=== PATIENT | female | born 1990 | race Caucasian/White ===

== ENCOUNTER 2023-01-25 11:08 | Outpatient (CLI) | payer OTHER, SELFPAY ==
[2023-01-29 04:02] LABS: Progesterone 4.7 ng/mL (***)
[2023-01-31 03:27] LABS: Estradiol, Ultrasensitive 296 pg/mL
== END 2023-01-25 11:09 | disposition home or self-care (01) ==
PROVIDERS: Visit Provider Student in an Organized Health Care Education/Training Program
DX: N91.2 Amenorrhea, unspecified (principal)
CPT/HCPCS: 36415; 82670; 83001; 84144; 84443

== ENCOUNTER 2023-06-15 11:49 | Outpatient (CLI) | payer OTHER, SELFPAY ==
[2023-06-15 12:25] LABS: Basophils Percent Auto 0.2 % (0.2-1.2); Eosinophils Absolute Auto 0.1 K/mm3 (0-0.3); Eosinophils Percent Auto 0.7 % (0-4.4); Hemoglobin 13.5 g/dL (12.0-15.0); Immature Granulocyte Absolute 0.06 K/mm3 (0.00-0.031); Immature Granulocyte Percent A 0.6 % (0-0.5); Lymphocytes Absolute Auto 1.81 K/mm3 (0.9-3.2); Lymphocytes Percent Auto 17.4 % (18.3-44.2); Mean Corpuscular HGB Conc 32.1 g/dl (32-36); Mean Corpuscular Hemoglobin 30.1 pg (26-34); Mean Corpuscular Volume 93.5 fl (80-100); Mean Platelet Volume 9.8 fl (7.4-10.4); Monocytes Absolute Auto 0.7 K/mm3 (0.1-0.6); Monocytes Percent Auto 6.8 % (2.6-8.5); Neutrophils Absolute Auto 7.8 K/mm3 (1.3-6.7); Neutrophils Percent Auto 74.3 % (45.5-73.1); Platelet Count Result 290 k/mm3 (150-375); Red Blood Count 4.49 M/mm3 (4.2-5.4); Red Cell Distribution Width 13.9 % (11.5-14.5); White Blood Count 10.4 K/mm3 (4.5-10.0)
[2023-06-15 13:22] LABS: HIV 1/2 Ab P24 Ag Result Negative (Negative)
[2023-06-15 13:25] LABS: Hepatitis B Surface Antigen Negative (Negative); Rubella IgG Antibody 19.5 IU/ML
[2023-06-15 13:42] LABS: Glucose 1 Hour PP 50gm Dose 130 mg/dL
[2023-06-15 13:54] LABS: Rapid Plasma Reagin Non-Reactive (NonReactive)
[2023-06-20 12:30] LABS: CMV IgG Antibody <0.60
[2023-06-26 13:37] LABS: CF Result NEGATIVE (NEGATIVE); Ethnicity NG
== END 2023-06-15 11:50 | disposition home or self-care (01) ==
PROVIDERS: Visit Provider Student in an Organized Health Care Education/Training Program
DX: N94.89 Other specified conditions associated with female genital organs and menstrual cycle (principal)
CPT/HCPCS: 36415; 81220; 82947; 84702; 85025; 86592; 86644; 86703; 86747; 86762; 86787; 86850; 86900; 86901; 87086; 87088; 87340; G0432

== ENCOUNTER 2023-09-28 09:42 | Emergency (ER) | payer OTHER, SELFPAY ==
[2023-09-28 09:50] VITALS: BP 148/78; PULSE 109; RESP 12; TEMP 36.2; O2SAT 100
== END 2023-09-28 09:50 | disposition left against medical advice (07) ==
LOC: ANHED 11:34
DX: O26.892 Other specified pregnancy related conditions, second trimester (principal); U07.1 COVID-19; Z3A.24 24 weeks gestation of pregnancy
CPT/HCPCS: 99199

== ENCOUNTER 2023-10-19 09:41 | Outpatient (CLI) | payer OTHER, SELFPAY ==
[2023-10-19 10:07] LABS: Hematocrit 35.9 % (37.0-47.0); Hemoglobin 11.6 g/dL (12.0-15.0); Mean Corpuscular HGB Conc 32.3 g/dl (32-36); Mean Corpuscular Hemoglobin 31.2 pg (26-34); Mean Corpuscular Volume 96.5 fl (80-100); Mean Platelet Volume 9.9 fl (7.4-10.4); Platelet Count Result 301 k/mm3 (150-375); Red Blood Count 3.72 M/mm3 (4.2-5.4); Red Cell Distribution Width 13.4 % (11.5-14.5); White Blood Count 12.4 K/mm3 (4.5-10.0)
[2023-10-19 10:18] LABS: Total Protein Urine Random 12 mg/dL
[2023-10-19 10:18] LABS: Alanine Aminotransferase 13 U/L (6-35); Albumin Level 3.4 g/dL (3.5-5.1); Alkaline Phosphatase 106 U/L (38-126); Anion Gap 3 mmol/L (8-16); Aspartate Amino Transferase 18 U/L (14-36); Bilirubin,Total 0.4 mg/dL (0.2-1.3); Blood Urea Nitrogen 8 mg/dL (7-17); Calcium 8.9 mg/dL (8.4-10.2); Carbon Dioxide 24 mmol/L (22-30); Chloride 106 mmol/L (98-107); Estimated Glomerular Filt Rate > 60; Glucose 89 mg/dL (65-110); Potassium 4.1 mmol/L (3.4-5.0); Sodium 133 mmol/L (137-145)
[2023-10-19 10:20] LABS: Total Protein Urine 24 Hr 156 mg/24hr (28-141); Total Volume 24 Hour Urine 1300 ml
== END 2023-10-19 09:42 | disposition home or self-care (01) ==
LOC: ANHLAB 09:43
PROVIDERS: Visit Provider Student in an Organized Health Care Education/Training Program
DX: O10.919 Unspecified pre-existing hypertension complicating pregnancy, unspecified trimester (principal); Z3A.00 Weeks of gestation of pregnancy not specified
CPT/HCPCS: 36415; 80053; 81050; 84156; 85027

== ENCOUNTER 2023-10-29 23:18 | Observation (INO) | payer OTHER, SELFPAY ==
[2023-10-29 23:48] VITALS: BP 143/64; PULSE 89
[2023-10-30 00:01] VITALS: BP 131/74; PULSE 85
[2023-10-30 00:05] VITALS: BMI 49.5
--- NOTE | 2023-10-30 00:05 | OBADM ---
This patient, Divya Bahena, admitted to the OB room OB Post 116 for observation. Patient/family oriented to hospital policies and general routines including ID bracelet, bed and alarms, visiting hours, pain management, procedures, bathroom and other care routines, personal items, smoking policy, room service/diet, and visiting hours. Patient/Family are encouraged to report perceived risks to care and to ask questions if they do not understand what they are told or what they should do.
[2023-10-30 00:16] VITALS: BP 127/65; PULSE 85
[2023-10-30 00:25] LABS: Bacteria Urine 1+ /hpf; Non Pathogenic Casts 0-2; RBC Urine 0-2 /hpf (0-2); Squamous Epithelial Cell Urine Moderate /hpf (Few)
[2023-10-30 00:31] LABS: Appearance Urine Clear (Clear); Color Urine Dark Yellow (Yellow)
[2023-10-30 00:32] LABS: Bilirubin Urine 1+ (Negative); Blood Urine Negative (Negative); Glucose Urine UA Negative (Negative); Ketones Urine 3+ mg/dL (Negative); Nitrate Urine Negative (Negative); Protein Urine 2+ mg/dL (Negative)
[2023-10-30 00:33] LABS: Add Urine Microscopic? YES; Leukocyte Esterase Ur Negative LEU/UL (Negative)
[2023-10-30] MEDS: DEXTROSE 5%/LACTATED RINGERS 1,000 ML 500 ML IV CONT (01:10)
[2023-10-30] MEDS: ONDANSETRON INJ 4 MG/2 ML VIAL IV PUSH (01:13)
[2023-10-30] MEDS: LACTATED RINGERS 1,000 ML 999 ML IV CONT ×2 (02:15→02:45)
--- NOTE | 2023-11-02 08:23 | PM.OBTRLD ---
OB - Triage/Final Diagnosis Visit Information Comments/Additional reasons for admission: I have assessed the risk for this patient, Divya Bahena, and determined that she would benefit from observation care. Evaluation Laboratory results: Laboratory Tests 10/29/23 23:49 Urine Color Dark yellow Urine Appearance Clear Urine pH 6.0 Ur Specific [place] 1.030 Urine Protein 2+ H Urine Glucose (UA) Negative Urine Ketones 3+ H Ur Blood (Man) Negative Urine Nitrate Negative Urine Bilirubin 1+ H Urine Urobilinogen 1.0 Leukocyte Esterase Rfl Negative Urine RBC 0-2 Urine WBC 11-20 H Ur Squamous Epith Cells Moderate Urine Bacteria 1+ H Urine Casts 0-2 Final Diagnosis (1) Dehydration: Code(s): E86.0 - Dehydration Status: Acute
== END 2023-10-30 03:35 | disposition home or self-care (01) ==
PROVIDERS: Admitting Provider Obstetrics & Gynecology; Visit Provider Obstetrics & Gynecology
DX: O99.283 Endocrine, nutritional and metabolic diseases complicating pregnancy, third trimester (principal); E86.0 Dehydration; O26.893 Other specified pregnancy related conditions, third trimester; R10.9 Unspecified abdominal pain; Z3A.29 29 weeks gestation of pregnancy
CPT/HCPCS: 81001; 87086; 87088; 96374; G0378; G0379; J2405; J7120; J7121

== ENCOUNTER 2023-11-03 10:02 | Outpatient (CLI) | payer OTHER, SELFPAY ==
[2023-11-03 10:23] LABS: Hematocrit 36.4 % (37.0-47.0); Hemoglobin 11.9 g/dL (12.0-15.0); Mean Corpuscular HGB Conc 32.7 g/dl (32-36); Mean Corpuscular Hemoglobin 30.5 pg (26-34); Mean Corpuscular Volume 93.3 fl (80-100); Platelet Count Result 306 k/mm3 (150-375); Red Cell Distribution Width 13.8 % (11.5-14.5); White Blood Count 10.5 K/mm3 (4.5-10.0)
[2023-11-03 10:37] LABS: Alanine Aminotransferase 31 U/L (6-35); Albumin Level 3.3 g/dL (3.5-5.1); Alkaline Phosphatase 166 U/L (38-126); Anion Gap 9 mmol/L (8-16); Aspartate Amino Transferase 25 U/L (14-36); Bilirubin,Total 0.4 mg/dL (0.2-1.3); Blood Urea Nitrogen 5 mg/dL (7-17); Calcium 8.6 mg/dL (8.4-10.2); Carbon Dioxide 23 mmol/L (22-30); Chloride 103 mmol/L (98-107); Estimated Glomerular Filt Rate > 60; Glucose 83 mg/dL (65-110); Potassium 3.6 mmol/L (3.4-5.0); Sodium 135 mmol/L (137-145)
[2023-11-03 11:05] LABS: Creatinine Urine 87.2 mg/dL; Total Protein Urine Random 14 mg/dL
[2023-11-03 11:14] LABS: HIV 1/2 Ab P24 Ag Result Negative (Negative)
[2023-11-11 18:46] LABS: Chenodeoxycholic Acid 4.9 umol/L (< OR = 3.9); Cholic Acid 8.1 umol/L (< OR = 2.8); Deoxycholic Acid 1.8 umol/L (< OR = 2.3); Total Bile Acids 14.8 umol/L (< OR = 8.3)
== END 2023-11-03 10:03 | disposition home or self-care (01) ==
LOC: ANHLAB 10:04
PROVIDERS: Student in an Organized Health Care Education/Training Program; PCP Family Medicine; Visit Provider Obstetrics & Gynecology
DX: O10.919 Unspecified pre-existing hypertension complicating pregnancy, unspecified trimester (principal); O99.719 Diseases of the skin and subcutaneous tissue complicating pregnancy, unspecified trimester; L29.9 Pruritus, unspecified
CPT/HCPCS: 36415; 80053; 81050; 82542; 82570; 84156; 85027; 86703; G0432

== ENCOUNTER 2023-11-16 09:48 | Outpatient (CLI) | payer OTHER, SELFPAY ==
[2023-11-16 11:44] LABS: Glucose 1 Hour PP 50gm Dose 122 mg/dL
== END 2023-11-16 09:49 | disposition home or self-care (01) ==
LOC: ANHLAB 09:50
PROVIDERS: PCP Family Medicine; Visit Provider Student in an Organized Health Care Education/Training Program
DX: Z34.90 Encounter for supervision of normal pregnancy, unspecified, unspecified trimester (principal)
CPT/HCPCS: 36415; 82947

== ENCOUNTER 2023-12-05 10:51 | Observation (INO) | payer OTHER, SELFPAY ==
[2023-12-05] VITALS (15 sets, daily range): BP systolic 135; BP diastolic 71; PULSE 71–100; O2SAT 96–100; BMI 48.9
[2023-12-05 11:25] LABS: Appearance Urine Clear (Clear); Bilirubin Urine Negative (Negative); Blood Urine Negative (Negative); Color Urine Yellow (Yellow); Glucose Urine UA Negative (Negative); Ketones Urine Negative (Negative); Leukocyte Esterase Ur Negative LEU/UL (NEGATIVE); Nitrate Urine Negative (Negative); Protein Urine Negative (Negative); Specific Grav Ur 1.008 (1.001-1.035); Urobilinogen Urine 0.2 mg/dL (<2.0)
[2023-12-05 11:26] LABS: Add Urine Microscopic? NO
[2023-12-05] MEDS: LACTATED RINGERS 1,000 ML 999 ML IV CONT (12:17)
[2023-12-05] MEDS: TERBUTALINE SULFATE 1 MG/ML VIAL 0.25 MG SUB-Q (12:17)
--- NOTE | 2023-12-05 13:44 | PM.OBTRLD ---
OB - Triage/Final Diagnosis Visit Information Comments/Additional reasons for admission: I have assessed the risk for this patient, Divya Bahena, and determined that she would benefit from observation care. Evaluation Laboratory results: Laboratory Tests 12/05/23 11:16 Urine Color Yellow Urine Appearance Clear Urine pH 7.0 Ur Specific [place] 1.008 Urine Protein Negative Urine Glucose (UA) Negative Urine Ketones Negative Ur Blood (Man) Negative Urine Nitrate Negative Urine Bilirubin Negative Urine Urobilinogen 0.2 Ur Leukocyte Esterase Negative Vital signs: Vital Signs - 24 hr 12/05/23 11:15 12/05/23 12:24 12/05/23 12:29 Pulse Rate 76 Blood Pressure 135/71 Pulse Oximetry 100 96 Oxygen Delivery 12/05/23 12:36 12/05/23 12:41 12/05/23 12:45 Pulse Rate Blood Pressure Pulse Oximetry 99 99 100 Oxygen Delivery 12/05/23 12:50 12/05/23 12:55 12/05/23 13:00 Pulse Rate Blood Pressure Pulse Oximetry 100 100 100 Oxygen Delivery 12/05/23 13:05 12/05/23 13:14 12/05/23 13:19 Pulse Rate Blood Pressure Pulse Oximetry 100 100 100 Oxygen Delivery 12/05/23 13:24 12/05/23 13:29 12/05/23 13:30 Pulse Rate Blood Pressure Pulse Oximetry 98 96 98 Oxygen Delivery 12/05/23 11:22 Pulse Rate Blood Pressure Pulse Oximetry Oxygen Delivery Room Air Final Diagnosis (1) Abdominal pain affecting : Code(s): O26.899 - Other specified related conditions, unspecified trimester; R10.9 - Unspecified abdominal pain Status: Acute
--- NOTE | 2023-12-05 14:23 | PC.NURSE ---
Pt continuing to wait for a ride.
== END 2023-12-05 14:53 | disposition home or self-care (01) ==
PROVIDERS: Admitting Provider Student in an Organized Health Care Education/Training Program; PCP Family Medicine; Visit Provider Obstetrics & Gynecology
DX: O26.893 Other specified pregnancy related conditions, third trimester (principal); R10.9 Unspecified abdominal pain; Z3A.34 34 weeks gestation of pregnancy
CPT/HCPCS: 81003; 87086; 96372; G0378; G0379; J3105; J7120

== ENCOUNTER 2023-12-07 08:44 | Outpatient (CLI) | payer OTHER, SELFPAY ==
[2023-12-16 18:28] LABS: Chenodeoxycholic Acid 1.6 umol/L (< OR = 3.9); Deoxycholic Acid <0.5 umol/L (< OR = 2.3); Total Bile Acids 3.6 umol/L (< OR = 8.3)
== END 2023-12-07 08:45 | disposition home or self-care (01) ==
PROVIDERS: PCP Family Medicine
DX: K83.1 Obstruction of bile duct (principal); O26.613 Liver and biliary tract disorders in pregnancy, third trimester; Z3A.00 Weeks of gestation of pregnancy not specified
CPT/HCPCS: 36415; 82542

== ENCOUNTER 2023-12-24 10:43 | Outpatient (RCR) | payer OTHER, SELFPAY ==
[2023-11-26 17:12] VITALS: BP 114/60; PULSE 81
[2023-12-03 16:47] VITALS: BP 123/70; PULSE 96
[2023-12-10 16:31] VITALS: BP 111/62; PULSE 78
[2023-12-17 16:20] VITALS: BP 138/73; PULSE 75
--- NOTE | ~2023-12-24 | US_ITS ---
EXAMINATION: US OB BPP wo non-stress DATE: 12/24/2023 12:06 INDICATION: -induced hypertension. Cholestasis TECHNIQUE: Real-time pelvic ultrasound was performed. The interpreting radiologist was not present fo r the study. COMPARISON: None. FINDINGS: There is a single living fetus in variable presentation. The placenta is anterior. cardiac act ivity and movement are demonstrated. heart rate is 132 beats per minute (bpm). Biophysical profile performed by the technologist: breathing (30 sec sustained breathing in 30 minutes): 2 out of 2 movement (3 gross body movements in 30 minutes): 2 out of 2 tone (one episode of jrcmmih-soedesjym-pwaqqsh limb movement): 2 out of 2 Amniotic fluid pocket (2 cm): 2 out of 2 Total score: 8 out of 8 IMPRESSION: 1. Single living intrauterine in variable presentation with heart rate of 132 bpm. 2. Normal placenta. 3. Biophysical profile 8 out of 8. Reviewed, dictated and finalized at location A. CENTER MANAGER IMPRESSION: 1. Single living intrauterine in variable presentation with hea rt rate of 132 bpm. 2. Normal placenta. 3. Biophysical profile 8 out of 8.
--- NOTE | ~2023-12-24 | US_ITS ---
EXAMINATION: US OB BPP wo non-stress DATE: 12/17/2023 16:23 INDICATION: BPP/ cholestasis . TECHNIQUE: Real-time ultrasound of the pelvis was performed. COMPARISON: 12/03/2023 FINDINGS: There is a single living fetus in vertex presentation. The placenta is anterior. heart rate is 155 bpm. The amniotic fluid index is 21 cm, which is normal (5th to 95th percentile is 7.7 to 24.9 c m). Biophysical profile performed by the technologist: breathing (30 sec sustained breathing in 30 minutes): 2 out of 2. movement (3 gross body movements in 30 minutes: 2 out of 2. tone (one episode of vgdpqtu-lvoubnkbz-ithmqtb limb movement): 2 out of 2. Amniotic fluid pocket (2 cm): 2 out of 2. Total score: 8 out of 8. IMPRESSION: Single living fetus in vertex presentation. Biophysical profile 8 out of 8. Reviewed, dictated and finalized at location K. MAKER
--- NOTE | ~2023-12-24 | US_ITS ---
EXAMINATION: US OB BPP wo non-stress DATE: 12/03/2023 17:37 INDICATION: BPP, cholestasis, CHTN . TECHNIQUE: Real-time ultrasound of the pelvis was performed. COMPARISON: None. FINDINGS: There is a single living fetus in vertex presentation, longitudinal lie. The placenta is anterior. F etal heart rate is 144 bpm. The deepest vertical amniotic fluid pocket measures 7.1 cm. Biophysical profile performed by the technologist: breathing (30 sec sustained breathing in 30 minutes): 0 out of 2. movement (3 gross body movements in 30 minutes: 2 out of 2. tone (one episode of hvlwyxr-nnyeoabem-wmngjta limb movement): 2 out of 2. Amniotic fluid pocket (2 cm): 2 out of 2. Total score: 6 out of 8. IMPRESSION: Single living fetus in vertex presentation. Biophysical profile 6 out of 8. . Reviewed, dictated and finalized at location K. R OPERATOR
[2023-12-24 11:28] LABS: Hematocrit 32.5 % (37.0-47.0); Hemoglobin 10.5 g/dL (12.0-15.0); Mean Corpuscular HGB Conc 32.3 g/dl (32-36); Mean Corpuscular Hemoglobin 29.8 pg (26-34); Mean Corpuscular Volume 92.3 fl (80-100); Platelet Count Result 301 k/mm3 (150-375); Red Blood Count 3.52 M/mm3 (4.2-5.4); White Blood Count 10.6 K/mm3 (4.5-10.0)
[2023-12-24 11:39] VITALS: BP 121/65; PULSE 80
[2023-12-26 15:33] LABS: Rapid Plasma Reagin Non-Reactive (NonReactive)
== END 2024-02-24 23:59 | disposition home or self-care (01) ==
LOC: ANHOBOP 10:43
PROVIDERS: PCP Family Medicine; Visit Provider Student in an Organized Health Care Education/Training Program
DX: O16.3 Unspecified maternal hypertension, third trimester (principal); O26.643 Intrahepatic cholestasis of pregnancy, third trimester; Z3A.33 33 weeks gestation of pregnancy; Z3A.34 34 weeks gestation of pregnancy; Z3A.35 35 weeks gestation of pregnancy; Z3A.36 36 weeks gestation of pregnancy; Z3A.37 37 weeks gestation of pregnancy
CPT/HCPCS: 36415; 59025; 76819; 85027; 86592; 86850; 86900; 86901

== ENCOUNTER 2023-12-26 09:49 | Inpatient (IN) | payer OTHER, SELFPAY ==
[2023-12-26] VITALS (54 sets, daily range): BP systolic 97–157; BP diastolic 49–122; PULSE 57–187; RESP 14–20; TEMP 36.1–36.7; O2SAT 96–100; BMI 48.0
--- NOTE | 2023-12-26 07:37 | PM.IMHP ---
H&P: HPI History of Present Illness Date/Time: 12/26/23 07:37 Chief Complaint: Intrauterine at term chronic hypertension cholestasis of obesity anxiety/depression prior tobacco use Narrative: 33 yo at 37w0d who presents for repeat . Pt has been complicated by cholestsasis of on Ursodiol. Bile acids were wnl on medication. Patinet also has CHTN on nifedipine. Pt has been on low dose aspirin. She has had follow up with [facility]. Her anxiety and depression are stable on Duloxetine. Review of Systems Cardiovascular: Cardiovascular: Denies chest pain, Denies leg edema, Denies palpitations, Denies dyspnea and Denies dyspnea on exertion Respiratory: Respiratory: Denies cough, Denies dyspnea and Denies dyspnea on exertion Gastrointestinal: Gastrointestinal: Denies abdominal pain, Denies constipation, Denies diarrhea, Denies nausea and Denies vomiting Genitourinary: Genitourinary: Denies hematuria, Denies urinary frequency, Denies dysuria, Denies pelvic pain, Denies urinary incontinence and Denies vaginal discharge Neurologic: Reports system reviewed and no additional complaints, except as documented Psychiatric: Psychiatric: Reports no additional psychiatric complaints Endocrine: Endocrine: Denies palpitations PMFSH Past Medical History Medical History Acid reflux Anxiety Depression Hypertension Suppression of menses Surgical History Surgical History History of delivery History of cholecystectomy Family History Family History Sibling Depression Grandparent Heart disease Grandparent Hypertension Other Diabetes mellitus Social History Social History Smoking status: Never smoker Tobacco type: cigarettes Alcohol intake: current Alcohol use details: rarely Substance use: never Substance use type: marijuana Living arrangements: other Additional living arrangements comments: spouse and children Occupation/Education: occupation Gender identity (if verbalized by the patient): Female Sexual Orientation (if Verbalized by the Patient): Straight or Heterosexual Spiritual care concerns: No Meds Home Medications and Allergies Home Medications Medication Instructions Recorded Confirmed Type loratadine 10 mg tablet (Allergy 10 mg PO DAILY 01/25/23 12/21/23 History Relief (loratadine)) duloxetine 60 mg capsule,delayed 60 mg PO DAILY 06/02/23 12/21/23 History release nifedipine 30 mg tablet,extended 90 mg PO DAILY 09/21/23 12/21/23 History release nystatin 100,000 unit/gram topical 1 applic topical BID PRN Rash 11/26/23 12/21/23 History powder ondansetron 4 mg disintegrating 4 mg PO Q4H PRN Nausea And Vomiting 11/26/23 12/21/23 History tablet ursodiol 300 mg capsule 300 mg PO TID 12/14/23 12/21/23 History omeprazole 20 mg capsule,delayed See Rx Instructions .Route 12/16/23 12/21/23 Rx release .COMPLEX #30 caps albuterol sulfate 90 mcg/actuation 2 puff inhalation QID PRN Wheezing 12/17/23 12/21/23 History aerosol inhaler Allergies Allergy/AdvReac Type Severity Reaction Status Date / Time Sulfa (Sulfonamide Allergy Severe Difficulty Verified 12/21/23 09:21 Antibiotics) Swallowing adhesive Allergy Mild Rash Verified 12/21/23 09:21 cephalexin [From Keflex] Allergy Mild Hives Verified 12/21/23 09:21 Exam Const: General: no acute distress Eyes: EOM: EOMs intact bilaterally Neck: Neck: supple Thyroid: thyroid normal Chest: Breast/axilla inspection: normal inspection of the breasts Breast/axilla palpation: normal palpation of the breasts, normal palpation of the axillae and no axillary lymphadenopathy Resp: Effort & Inspection: normal respiratory effort Auscultation:
[2023-12-26] MEDS: ACETAMINOPHEN 500 MG TABLET 1000 MG PO (10:35)
[2023-12-26] MEDS: LACTATED RINGERS 1,000 ML 125 ML IV CONT ×2 (10:36→11:46)
--- NOTE | 2023-12-26 10:50 | LDADM ---
This patient, Divya Bahena, was admitted to Labor/Delivery/Recovery 119 on 12/26/23 at 09:49. Plans for repeat section were discussed with patient. Patient/family oriented to hospital policies and general routines including ID bracelet, bed and alarms, visiting hours, pain management, procedures, bathroom and other care routines, personal items, smoking policy, room service/diet and guest tray routines, infant security routines, and visiting hours. Patient/Family are encouraged to report perceived risks to care and to ask questions if they do not understand what they are told or what they should do. See OBIX for further documentation.
[2023-12-26] MEDS: FAMOTIDINE 20 MG/2 ML VIAL IV PUSH (13:29)
[2023-12-26] MEDS: ONDANSETRON INJ 4 MG/2 ML VIAL IV PUSH (13:29)
[2023-12-26] MEDS: CLINDAMYCIN 900 MG/D5W 50 ML 900 MG/50 ML PIGGYBACK 50 MG IVPB (13:40)
--- NOTE | 2023-12-26 14:33 | W.PM.OBCSD ---
OB - Delivery Note Procedure Delivery date: 12/26/23 Pre-op diagnosis: Chronic Hypertension and Other (cholestasis) Post-op Diagnosis: Same Induction method: None Prior to decision for section, ACOG/SMFM labor guidelines were considered and discussed with the patient and staff. Decision made to proceed with the section.: Yes Procedure Performed: Repeat Secondary branch: low cervical, transverse Surgeon: Elías Colbert MD Anesthesia type: Spinal Description of Procedure/Findings: The patient was taken to the operating room. A combined spinal epidural anesthesic was administered and found to be adequate at a t-10 level. The patient was placed in a supine position with a slight left lateral tilt. A quintanilla catheter was placed with return of clear urine. A Bovie grounding pad was placed. Surgical prep was performed and surgical drapes were placed. A surgical time out was performed. A Pfannenstiel skin incision was then made with the scalpel and carried through to the underlying layer of fascia. The fascia was then incised in the midline and the incision was extended laterally with the Garcia scissors. The superior aspect of the fascia was then grasped with the Barbara clamps, elevated, and the underlying rectus muscles dissected off bluntly and sharply. Attention was then turned to the inferior aspect of this incision which, in a similar fashion, was grasped, tented up with the Barbara clamps, and the rectus muscles dissected off both bluntly and sharply. The rectus muscles were then in the midline. The peritoneum was identified and entered bluntly. The peritoneal incision was then extended superiorly and inferiorly with good visualization of the bladder. An Lg ring retractor was placed for better visualization. The uterus was inspected for rotation. A low-transverse uterine incision was made sharply with the scalpel and entry was made into the uterine cavity. An amniotomy was made and copious amounts of clear fluid were noted on return. The uterine incision was extended laterally bluntly. The bladder blade was removed and the fetus was delivered atraumatically. The nose and mouth were suctioned with a bulb syringe. The umbilical cord was clamped twice and cut. The infant was handed off to the waiting staff. At the time of the delivery, the had good color, tone and grimace. The cried with minimal stimulation. A second segment of umbilical cord was clamped and cut for cord blood gasses. Cord blood was collected for determination of the blood type and for direct [place]. The placenta was delivered spontaneously without difficulty. The placenta appeared grossly normal and complete. The uterus was exteriorized and cleared of all clots and debris. The uterine incision was repaired using 0-monocryl suture in a running fashion. A second layer of 0 Monocryl suture was used in an imbricating fashion to obtain excellent hemostasis and uterine strength. The uterine closure was inspected for hemostasis. The posterior aspect of the uterus and the broad ligaments were inspected and the posterior cul-de-sac cleared of fluid and blood clots. The uterine closure was again inspected and found to be hemostatic. The uterus was returned to the abdominal cavity. The pericolic gutters were inspected and were cleared of all blood clots and debris. The uterine closure was then re inspected to ensure hemostasis as were all subfascial tissues. The peritoneum was closed using 3-0 vicryl in a running fashion. The fascia was reapproximated with 0-vicryl in a running fashion. The subcutaneous tissue was irrigated and hemostasis achieved with electrocautery. It was reapproximated with 3-0 vicryl in a running fashion. The skin was closed with cecelia. A sterile dressing was applied to the wound. The patient tolerated the procedure well. Sponge, lap and needle counts were correct times three. The patient was taken to recovery in
[2023-12-26] MEDS: OXYTOCIN 30 UNITS/NS 500 ML 30 UNITS/500 ML BAG 125 UNITS IV CONT (15:34)
[2023-12-26] MEDS: fentaNYL CITRATE INJ (*CRX) 100 MCG/2 ML VIAL 25 MCG IV PUSH (15:51)
--- NOTE | 2023-12-26 17:00 | PC.NURSE ---
Patient transferred to post room #285 per stretcher from labor and delivery. Support person present. Oriented to unit, room, information board, rooming in, admission packet and security measures. Patient verbalizes understanding.
[2023-12-26] MEDS: IBUPROFEN 600 MG TABLET (17:45)
[2023-12-26] MEDS: SIMETHICONE 80 MG TAB.CHEW PO ×2 (17:45→20:36)
[2023-12-26] MEDS: ACETAMINOPHEN 325 MG TABLET 650 MG PO (17:45)
[2023-12-26] MEDS: DEXTROSE 5%/0.45% SOD CHL 1,000 ML 125 ML IV CONT (20:36)
[2023-12-26] MEDS: HYDROcodone/acetaminophen (*CRX) 5-325 MG TABLET 1 TAB PO (20:36)
[2023-12-27] MEDS: ACETAMINOPHEN 325 MG TABLET 650 MG PO ×4 (00:06→17:54)
[2023-12-27] MEDS: KETOROLAC 15 MG/ML VIAL (*BKC) IV PUSH ×2 (00:06→05:59)
[2023-12-27 04:08] VITALS: BP 109/61; PULSE 73; RESP 18; TEMP 36.6; O2SAT 97
--- NOTE | 2023-12-27 07:39 | WPDANLDPN2 ---
Anes-Prog Note L&D Date/Time: 12/27/23 07:39 Neuraxial method: spinal Epidural/Spinal procedure site: clean & non-tender Neuro status: Neuro function grossly intact. Cardiovascular status: normal Respiratory status: normal Airway patency: baseline Mental status: baseline Post-Op hydration status: normal Vital Signs: Last Vital Signs Temp 97.9 F 12/27/23 04:08 Pulse 73 12/27/23 04:08 Resp 18 12/27/23 04:08 BP 109/61 12/27/23 04:08 Pulse Ox 97 12/27/23 04:08 O2 Del Method Room Air 12/26/23 20:35 Pain score (VAS): 0 I/O: Intake & Output 12/26/23 12/26/23 12/27/23 15:59 23:59 07:59 Intake Total 1300 240 Output Total 605 495 767 Balance 092 -206 -625 Post-procedural complaints: none Patient feedback: Patient satisfied with anesthetic care.
--- NOTE | 2023-12-27 07:40 | WPDANLDNPN2 ---
Anes-Prog Note L&D-Neuraxial Date/Time: 12/27/23 07:40 Neuraxial medications: intrathecal PF morphine Opiod-related complaints: none Patient feedback: Patient satisfied with post-operative pain management.
--- NOTE | 2023-12-27 07:57 | PM.OBPNVD ---
OB - PN: Subj Subjective Date/time seen: 12/27/23 07:57 Interval history: postop day 1 from a repeat Patient comments: no complaints, pain well controlled, tolerating diet and flatus present Narrative: patient resting comfortably in bed this morning. Patient has voided after her Quintanilla has been patient states her pain is adequately controlled she denies the use OB - PN: Obj Data Labs 12/27/23 03:40 OB - PN A/P Plan day: 1 Plan: routine care Comments: patient doing well H/H pending afebrile, VSS incision covered with KAIN dressing quintanilla removed, voiding spontaneously pt desires infant circumcision. Risks, benefits, alternatives discussed. Will proceed with circumcision continue routine post op care Time Spent With Patient Time: Total time spent is greater than 50% in coordination of care (as documented) at patient's floor/unit and/or counseling patient: Time with patient: less than 15 minutes Review of Systems Constitutional: Constitutional: Reports no additional constitutional complaints Cardiovascular: Cardiovascular: Reports no additional cardiovascular complaints Respiratory: Respiratory: Reports no additional respiratory complaints Gastrointestinal: Gastrointestinal: Reports no additional gastrointestinal complaints Genitourinary: Genitourinary: Reports no additional female genitourinary complaints Exam Const: General: comfortable and no acute distress Resp: Effort & Inspection: normal respiratory effort Auscultation: clear to auscultation bilaterally Cardio: Rate: regular rate GI: GI Palp: Yes Soft to palpation, Yes Tenderness to palpation present (GI) (around incision ) and No Guarding due to palpation present (GI) Auscultation: normal bowel sounds Other: incision C/D/I, covered with Dermabond Psych: Appearance: grossly normal Mental Status: mental status grossly normal Affect: normal affect
[2023-12-27 08:10] VITALS: BP 123/71; PULSE 64; RESP 16; TEMP 37.2; O2SAT 98
[2023-12-27] MEDS: SIMETHICONE 80 MG TAB.CHEW PO ×3 (08:51→17:53)
[2023-12-27] MEDS: DOCUSATE SODIUM 100 MG CAPSULE PO ×2 (08:51→17:54)
[2023-12-27] MEDS: DULoxetine HCL 60 MG CAPSULE.DR PO (08:52)
[2023-12-27] MEDS: NIFEdipine 30 MG TAB.ER.24 90 MG PO (08:52)
[2023-12-27] MEDS: PANTOPRAZOLE 40 MG TABLET PO (08:52)
[2023-12-27] MEDS: LORATADINE 10 MG TABLET PO (08:52)
[2023-12-27] MEDS: HYDROcodone/acetaminophen (*CRX) 5-325 MG TABLET 1 TAB PO ×2 (10:33→23:10)
[2023-12-27] MEDS: IBUPROFEN 600 MG TABLET PO ×2 (11:51→17:54)
[2023-12-27 12:29] VITALS: BP 145/69; PULSE 64; RESP 16; TEMP 36.4; O2SAT 100
[2023-12-27 12:31] LABS: Basophils Percent Auto 0.3 % (0.2-1.2); Eosinophils Absolute Auto 0.1 K/mm3 (0-0.3); Eosinophils Percent Auto 0.5 % (0-4.4); Hematocrit 28.7 % (37.0-47.0); Hemoglobin 9.2 g/dL (12.0-15.0); Immature Granulocyte Absolute 0.12 K/mm3 (0.00-0.031); Immature Granulocyte Percent A 0.9 % (0-0.5); Lymphocytes Percent Auto 10.8 % (18.3-44.2); Mean Corpuscular HGB Conc 32.1 g/dl (32-36); Mean Corpuscular Hemoglobin 29.9 pg (26-34); Mean Corpuscular Volume 93.2 fl (80-100); Mean Platelet Volume 10.2 fl (7.4-10.4); Monocytes Absolute Auto 1.3 K/mm3 (0.1-0.6); Monocytes Percent Auto 10.2 % (2.6-8.5); Neutrophils Percent Auto 77.3 % (45.5-73.1); Platelet Count Result 272 k/mm3 (150-375); Red Blood Count 3.08 M/mm3 (4.2-5.4); Red Cell Distribution Width 14.2 % (11.5-14.5); White Blood Count 12.9 K/mm3 (4.5-10.0)
--- NOTE | 2023-12-27 16:11 | PC.NURSE ---
Reported to RN this morning that mother is bottle feeding with formula and there is no knowledge of mother wanting to breastfeed.
[2023-12-27] MEDS: POLYSACCHARIDE IRON COMPLEX 150 MG CAPSULE PO (17:54)
[2023-12-27 19:20] VITALS: BP 164/93; PULSE 75; RESP 18; TEMP 36.8; O2SAT 97
[2023-12-28] MEDS: IBUPROFEN 600 MG TABLET PO (05:38)
[2023-12-28] MEDS: ACETAMINOPHEN 325 MG TABLET 650 MG PO (05:38)
--- NOTE | 2023-12-28 07:18 | PM.OBDSVD ---
DS: Admitting Diagnosis Discharge Date 12/28/23 Admitting Diagnosis intrauterine at term chronic hypertension cholestasis of obesity tobacco/thc use prior x1 DS: Discharge Diagnosis Discharge Diagnosis (1) delivery delivered: Code(s): O82 - Encounter for delivery without indication Status: Acute OB - DS: Summary OB Procedures : None OB Procedures Intrapartum: OB Procedures: : None Peripartum Data Delivery Method: Section Procedures: Procedures Operation Date: 12/26/23 12:00 Actual Procedure Side Surgeon p Section Not Applicable Elías Colbert MD complications: none Status at Discharge Functional status at discharge: independent ambulation Overall status at discharge: patient is progressing back to baseline Time Spent with Patient Time attestation: Total time spent providing and/or coordinating discharge services: Time spent: Less than 30 minutes Exam Const: General: comfortable and no acute distress Resp: Effort & Inspection: normal respiratory effort Auscultation: clear to auscultation bilaterally Cardio: Rate: regular rate GI: Inspection: non-distended GI Palp: Yes Soft to palpation, No Firmness to palpation present (GI), Yes Tenderness to palpation present (GI) (mild tenderness over incision ) and No Guarding due to palpation present (GI) Auscultation: normal bowel sounds Psych: Appearance: grossly normal Mental Status: mental status grossly normal DS: Data Data Completed and Pending Pending studies at discharge: Pending at discharge 12/26/23 14:04 Surgical [PTH] Routine Labs on day of discharge: Labs from last 24 hours 12/27/23 12:15 WBC 12.9 H RBC 3.08 L Hgb 9.2 L Hct 28.7 L MCV 93.2 MCH 29.9 MCHC 32.1 RDW 14.2 Plt Count 272 MPV 10.2 Immature Gran % (Auto) 0.9 H Neut % (Auto) 77.3 H Lymph % (Auto) 10.8 L [place] % (Auto) 10.2 H Eos % (Auto) 0.5 Baso % (Auto) 0.3 Lymph # (Auto) 1.40 [place] # (Auto) 1.3 H Eos # (Auto) 0.1 Baso # (Auto) 0.0 Abs Immat Gran (auto) 0.12 H Absolute Neuts (auto) 10.0 H Absolute Nucleated RBC 0.0 Nucleated RBC % 0.0 Discharge Plan Discharge Discharging Clinician: Elías Colbert Patient Disposition: Home, Self-Care Activity: as tolerated and pelvic rest Diet: regular Patient Instructions: Antibiotic Form, (DC) Stand Alone Forms: General Discharge Information Follow-up/Referrals: Elías Colbert MD [Physician] - Discharge Medications: New oxycodone-acetaminophen 5-325 mg tablet 1 tablet PO Q6H PRN (Reason: pain) Qty: 28 0RF ibuprofen 600 mg tablet 600 mg PO Q6H PRN (Reason: pain) Qty: 30 0RF Continued nifedipine 30 mg tablet extended release 90 mg PO DAILY loratadine [Allergy Relief (loratadine)] 10 mg tablet 10 mg PO DAILY duloxetine 60 mg capsule,delayed release(DR/EC) 60 mg PO DAILY nystatin 100,000 unit/gram powder 1 applic topical BID PRN (Reason: Rash) Rx Instructions: Apply to affected area ondansetron 4 mg tablet,disintegrating 4 mg PO Q4H PRN (Reason: Nausea And Vomiting) Discontinued ursodiol 300 mg capsule 300 mg PO TID albuterol sulfate 90 mcg/actuation Hfa Aerosol Inhaler 2 puff INHALATION QID PRN (Reason: Wheezing) omeprazole 20 mg capsule,delayed release(DR/EC) See Rx Instructions .ROUTE .COMPLEX Qty: 30 0RF Dose Instruction: TAKE 1 CAPSULE BY MOUTH DAILY Rx Instructions: TAKE 1 CAPSULE BY MOUTH DAILY Date of admission: 12/26/23 09:49 Primary Care Provider: Dontae Rodriguez Admitting Provider: Elías Colbert Attending physician on admission: Elías Colbert Condition: Stable
[2023-12-28 09:00] VITALS: BP 146/78; PULSE 68; RESP 16; TEMP 36.6; O2SAT 100
[2023-12-28] MEDS: POLYSACCHARIDE IRON COMPLEX 150 MG CAPSULE PO (09:06)
[2023-12-28] MEDS: PANTOPRAZOLE 40 MG TABLET PO (09:06)
[2023-12-28] MEDS: NIFEdipine 30 MG TAB.ER.24 90 MG PO (09:06)
[2023-12-28] MEDS: LORATADINE 10 MG TABLET PO (09:06)
[2023-12-28] MEDS: DULoxetine HCL 60 MG CAPSULE.DR PO (09:06)
[2023-12-28] MEDS: DOCUSATE SODIUM 100 MG CAPSULE PO (09:06)
--- NOTE | 2023-12-28 10:26 | PC.NURSE ---
Patient to view the discharge video Mother & Baby Care, The First Two Weeks online. Patient was given the opportunity and encouraged to ask questions. Patient verbalized understanding of information shared and has been given the mother/baby guide for home reference.
[2023-12-29 09:31] VITALS: BP 126/79; PULSE 84; RESP 18; TEMP 37.1; O2SAT 98
== END 2023-12-28 10:37 | disposition home or self-care (01) | DRG 540 ==
LOC: ANHLDR 09:54 → ANHOB2 17:10
PROVIDERS: Admitting Provider Student in an Organized Health Care Education/Training Program; PCP Family Medicine; Visit Provider Student in an Organized Health Care Education/Training Program
PROC: 10D00Z1 Extraction of Products of Conception, Low, Open Approach (ICD-10-PCS; CPT 59514; principal; 2023-12-26 12:00)
DX: O34.219 Maternal care for unspecified type scar from previous cesarean delivery (principal); O10.92 Unspecified pre-existing hypertension complicating childbirth; Z3A.37 37 weeks gestation of pregnancy; Z37.0 Single live birth; O26.643 Intrahepatic cholestasis of pregnancy, third trimester; K83.1 Obstruction of bile duct; O99.344 Other mental disorders complicating childbirth; F41.8 Other specified anxiety disorders
CPT/HCPCS: 36415; 59025; 76819; 85025; 85027; 86592; 86850; 86900; 86901; 88307; A9270; J1100; J1580; J1885; J2274; J2371; J2405; J2590; J3010; J7120

== ENCOUNTER 2024-01-04 01:10 | Inpatient (IN) | payer OTHER, SELFPAY ==
--- NOTE | 2024-01-03 23:59 | ADMGEN ---
This patient, Divya Bahena, was admitted to Medical Room 241-. Patient/family oriented to hospital policies and general routines including ID bracelet, bed and alarms, visiting hours, pain management, procedures, bathroom and other care routines, personal items, smoking policy, room service/diet, and visiting hours. Information on how to activate the Rapid Response Team has been discussed. Patient/Family are encouraged to report perceived risks to care and to ask questions if they do not understand what they are told or what they should do.
[2024-01-04] VITALS (11 sets, daily range): BP systolic 117–156; BP diastolic 62–91; PULSE 64–94; RESP 12–20; TEMP 36.4–36.8; O2SAT 92–100; BMI 44.0
[2024-01-04] MEDS: HYDROcodone/acetaminophen (*CRX) 5-325 MG TABLET 1 TAB PO ×3 (01:33→20:06)
[2024-01-04] MEDS: NICOTINE (*PBKC) 21 MG PATCH 1 PATCH TRANSDERM ×2 (01:33→08:10)
[2024-01-04] MEDS: LACTATED RINGERS 1,000 ML 125 ML IV CONT ×2 (01:33→08:11)
[2024-01-04 05:32] LABS: Basophils Percent Auto 0.2 % (0.2-1.2); Eosinophils Absolute Auto 0.1 K/mm3 (0-0.3); Eosinophils Percent Auto 0.8 % (0-4.4); Hematocrit 31.3 % (37.0-47.0); Hemoglobin 9.9 g/dL (12.0-15.0); Immature Granulocyte Absolute 0.16 K/mm3 (0.00-0.031); Immature Granulocyte Percent A 1.3 % (0-0.5); Lymphocytes Absolute Auto 1.17 K/mm3 (0.9-3.2); Lymphocytes Percent Auto 9.4 % (18.3-44.2); Mean Corpuscular HGB Conc 31.6 g/dl (32-36); Mean Corpuscular Hemoglobin 29.2 pg (26-34); Mean Corpuscular Volume 92.3 fl (80-100); Mean Platelet Volume 9.6 fl (7.4-10.4); Monocytes Absolute Auto 1.5 K/mm3 (0.1-0.6); Monocytes Percent Auto 11.8 % (2.6-8.5); Neutrophils Absolute Auto 9.5 K/mm3 (1.3-6.7); Neutrophils Percent Auto 76.5 % (45.5-73.1); Platelet Count Result 409 k/mm3 (150-375); Red Blood Count 3.39 M/mm3 (4.2-5.4); Red Cell Distribution Width 14.4 % (11.5-14.5); White Blood Count 12.4 K/mm3 (4.5-10.0)
[2024-01-04 05:49] LABS: Anion Gap 4 mmol/L (8-16); Blood Urea Nitrogen 11 mg/dL (7-17); Calcium 8.3 mg/dL (8.4-10.2); Carbon Dioxide 25 mmol/L (22-30); Chloride 105 mmol/L (98-107); Estimated CRCL calculation 147 ml/min; Estimated Glomerular Filt Rate > 60; Glucose 81 mg/dL (65-110); Potassium 3.6 mmol/L (3.4-5.0); Sodium 134 mmol/L (137-145)
[2024-01-04] MEDS: VANCOMYCIN 1,500 MG/NS 500 ML 1,500 MG/500 ML BAG 250 MG IVPB ×2 (08:10→20:06)
--- NOTE | 2024-01-04 08:49 | PM.IMHP ---
H&P: HPI History of Present Illness Date/Time: 01/04/24 08:49 Chief Complaint: surgical site infection Narrative: 33-year-old female who presents 1 week after repeat with complaint of purulent drainage from her incision. Patient states she was at home and sneezed. Patient states with the pressure of sneezing, her wound opened and began draining bloody purulence fluid. Patient was evaluated in the emergency room in [place]. She was started on vancomycin and Levaquin. Patient was then transferred to our facilities. Patient is resting comfortably in bed this morning. Patient continues to have active drainage from her incision. Review of Systems Review of Systems: All systems reviewed & are unremarkable except as noted in HPI and below PMFSH Past Medical History Medical History Acid reflux Anxiety Depression Hypertension Suppression of menses Surgical History Surgical History History of delivery History of cholecystectomy Family History Family History Sibling Depression Grandparent Heart disease Grandparent Hypertension Other Diabetes mellitus Social History Social History Smoking packs per day: 0.5 Smoking cigarettes per day: 10.0 Years smoked: 20 Smoking pack-years: 10.00 Smoking status: Current every day smoker Tobacco type: cigarettes Second hand tobacco smoke exposure: Yes Alcohol intake: never Alcohol use details: rarely Substance use: never Substance use type: marijuana Do You Feel Safe in your Home?: Yes Lack of Transportation: No Lack of Food: Never True Current Housing: I Have Housing Concerned About Future Housing: No Difficulty Paying Gas/Electric Bills: No Difficulty Paying for Meds: No Currently Unemployed: No Education: Trade/Vocational Certificate Difficulty w/ Childcare or Family Care: No Living arrangements: other Additional living arrangements comments: spouse and children Occupation/Education: occupation Gender identity (if verbalized by the patient): Female Sexual Orientation (if Verbalized by the Patient): Straight or Heterosexual Spiritual care concerns: No Meds Home Medications and Allergies Home Medications Medication Instructions Recorded Confirmed Type loratadine 10 mg tablet (Allergy 10 mg PO DAILY 01/25/23 01/04/24 History Relief (loratadine)) nifedipine 30 mg tablet,extended 90 mg PO DAILY 09/21/23 01/04/24 History release nystatin 100,000 unit/gram topical 1 applic topical BID PRN Rash 11/26/23 01/04/24 History powder ibuprofen 600 mg tablet 600 mg PO Q6H PRN Pain (Scale 01/04/24 01/04/24 History Score 1-3) omeprazole 20 mg capsule,delayed 20 mg PO DAILY 01/04/24 01/04/24 History release oxycodone-acetaminophen 5 mg-325 1 tablet PO Q6H PRN Pain (Scale 01/04/24 01/04/24 History mg tablet Score 7-10) Allergies Allergy/AdvReac Type Severity Reaction Status Date / Time Sulfa (Sulfonamide Allergy Severe Difficulty Verified 01/02/24 10:56 Antibiotics) Swallowing adhesive Allergy Mild Rash Verified 01/02/24 10:56 cephalexin [From Keflex] Allergy Mild Hives Verified 01/02/24 10:56 Vital Signs Vital Signs - 24 hr 01/04/24 00:10 01/04/24 00:33 01/04/24 08:00 Temperature 97.7 F Pulse Rate 71 80 Respiratory Rate 19 18 Blood Pressure 118/63 119/71 Pulse Oximetry 92 98 Oxygen Delivery Room Air Exam Const: General: cooperative, comfortable, poor hygiene and obese Resp: Effort & Inspection: normal respiratory effort and able to speak in complete sentences Cardio: Rate: regular rate GI: Inspection: Abdominal wall edema and incision Other: Pfannenstiel incision opened along the left apex. Approximately 3 cm opening in
--- NOTE | 2024-01-04 12:21 | SUR.PREOP ---
Discussed with patient and spouse need for caution after surgery with 9 day old baby. Informed her she would be under influence of anesthesia drugs for several hours after surgery and would need to use caution in handling baby. Acknowledged understanding.
[2024-01-04] MEDS: LACTATED RINGERS 1,000 ML 30 ML IV CONT ×2 (12:43→14:22)
--- NOTE | 2024-01-04 12:44 | WPDHPUPDATE1 ---
History and Physical Update Update Date/Time: 01/04/24 12:44 History and Physical has been reviewed, including an updated exam of the patient. There are NO changes in the patient's condition. Risks, benefits, and alternatives have been discussed and questions answered. Patient agrees to proceed with procedure.
--- NOTE | 2024-01-04 12:45 | WPDANESEPPF ---
Anes - Initial Pre Proc Eval Procedure: Operation Date: 01/04/24 13:30 Proposed Procedures p Abdominal Wound Debridement - Elías Colbert MD Date/Time: 01/04/24 12:45 Surgeon: Elías Colbert MD Pre Op Diagnosis: Post Op Surg Site Inf Patient Data Age: 33 Gender: F Height: 1.65 m Weight: 120 kg Last Vital Signs Temp 97.6 F 01/04/24 12:14 Pulse 72 01/04/24 12:14 Resp 16 01/04/24 12:14 BP 117/65 01/04/24 12:14 Pulse Ox 99 01/04/24 12:14 O2 Del Method Room Air 01/04/24 12:14 Allergies Allergy/AdvReac Type Severity Reaction Status Date / Time Sulfa (Sulfonamide Allergy Severe Difficulty Verified 01/02/24 10:56 Antibiotics) Swallowing adhesive Allergy Mild Rash Verified 01/02/24 10:56 cephalexin [From Keflex] Allergy Mild Hives Verified 01/02/24 10:56 Home Medications Medication Instructions Recorded Confirmed Type loratadine 10 mg tablet (Allergy 10 mg PO DAILY 01/25/23 01/04/24 History Relief (loratadine)) nifedipine 30 mg tablet,extended 90 mg PO DAILY 09/21/23 01/04/24 History release nystatin 100,000 unit/gram topical 1 applic topical BID PRN Rash 11/26/23 01/04/24 History powder ibuprofen 600 mg tablet 600 mg PO Q6H PRN Pain (Scale 01/04/24 01/04/24 History Score 1-3) omeprazole 20 mg capsule,delayed 20 mg PO DAILY 01/04/24 01/04/24 History release oxycodone-acetaminophen 5 mg-325 1 tablet PO Q6H PRN Pain (Scale 01/04/24 01/04/24 History mg tablet Score 7-10) Laboratory Tests 01/04/24 04:53 WBC 12.4 H K/mm3 (4.5-10.0) RBC 3.39 L M/mm3 (4.2-5.4) Hgb 9.9 L g/dL (12.0-15.0) Hct 31.3 L % (37.0-47.0) MCV 92.3 fl (80-100) MCH 29.2 pg (26-34) MCHC 31.6 L g/dl (32-36) RDW 14.4 % (11.5-14.5) Plt Count 409 H D k/mm3 (150-375) MPV 9.6 fl (7.4-10.4) Immature Gran % (Auto) 1.3 H % (0-0.5) Neut % (Auto) 76.5 H % (45.5-73.1) Lymph % (Auto) 9.4 L % (18.3-44.2) [place] % (Auto) 11.8 H % (2.6-8.5) Eos % (Auto) 0.8 % (0-4.4) Baso % (Auto) 0.2 % (0.2-1.2) Lymph # (Auto) 1.17 K/mm3 (0.9-3.2) [place] # (Auto) 1.5 H K/mm3 (0.1-0.6) Eos # (Auto) 0.1 K/mm3 (0-0.3) Baso # (Auto) 0.0 K/mm3 (0.0-0.1) Abs Immat Gran (auto) 0.16 H K/mm3 (0.00-0.031) Absolute Neuts (auto) 9.5 H K/mm3 (1.3-6.7) Absolute Nucleated RBC 0.0 K/mm3 (0.0-0.012) Nucleated RBC % 0.0 % (0.0-0.2) Sodium 134 L mmol/L (137-145) Potassium 3.6 mmol/L (3.4-5.0) Chloride 105 mmol/L (98-107) Carbon Dioxide 25 mmol/L (22-30) Anion Gap 4 L mmol/L (8-16) BUN 11 D mg/dL (7-17) Creatinine 0.60 L mg/dL (0.7-1.0) Estim Creat Clear Calc 147 ml/min Estimated GFR > 60 (59 - ) Glucose 81 mg/dL (65-110) Calcium 8.3 L mg/dL (8.4-10.2) Patient hx anesthesia problems: none Family hx anesthesia problems: none Results Review: All pre-operative results and documents have been reviewed as part of the pre-operative evaluation. [facility] Past Medical History Medical History Acid reflux Anxiety Depression Hypertension Suppression of menses Surgical History Surgical History History of delivery History of cholecystectomy Family History Family History Sibling Depression Grandparent Heart disease Grandparent Hypertension Other Diabetes mellitus Social History Social History Smoking packs per day: 0.5 Smoking cigarettes per day: 10.0 Years smoked: 20 Smoking pack-years: 10.00 Smoking status: Current every day smoker Tobacco type: cigarettes Second hand tobacco smoke exposure: Yes Alcohol intake: never Alcohol use details: rarely Substance use: never S
[2024-01-04] MEDS: fentaNYL CITRATE INJ (*CRX) 100 MCG/2 ML VIAL 25 MCG IV PUSH ×8 (14:24→14:42)
[2024-01-04] MEDS: HYDROmorphone HCL INJ (*CRX) 1 MG/ML SYR 0.5 MG IV PUSH ×8 (14:43→15:30)
--- NOTE | 2024-01-04 14:44 | W.PM.PROC2 ---
Procedure Note - Detailed Date of Procedure 01/04/24 Pre-op Diagnosis Post Op Surg Site Inf Post-op Diagnosis Same Procedure Performed Wound exploration and debridement repair of fascial dehiscence Surgeon Elías Colbert MD Anesthesia General Indications one week from repeat with post op wound infection Findings approximately 3 cm superficial wound separation at the left apex of the incision, copious amount of blood tinged purulent discharge, subcutaneous tissue was with pockets of abscess, approximately 3 cm midline fascial defect. Peritoneum appears intact Description of Procedure The risks, benefits, indications and alternatives were reviewed with the patient and informed consent was obtained. The patient was taken to the operating room and placed under general anesthesia without incident. Patient was in supine position. The abdomen was prepped and draped in a sterile fashion The Pfannenstiel incision was inspected. there was an approximately 3 cm superficial separation of the Pfannenstiel incision at the left apex. This area was probed with a sterile swab to obtain a culture. The defect was appreciated to extend medially as well as superiorly and inferiorly. Pfannenstiel incision was then reopened with a scalpel. Copious amounts of purulence discharge was expressed from the incision. Several pockets of abscess were noted within the subcutaneous tissue. Dissection was reopened to the level of the fascia. An approximately 3 cm midline separation in the fascial layer was noted. The peritoneum remained intact. The fascial incision was opened in its entirety. Previous suture material and surrounding did tissue was removed. Dissection was continued until healthy viable tissue was appreciated at the fascial layer. The fascial defect was copiously irrigated with saline. Good hemostasis was noted at the fascial layer. The fascial was reapproximated with looped 0 PDS. The subcutaneous layers were then inspected and again debrided of all infected tissue. Dissection of subcuticular adipose tissue was continued until healthy viable tissue was appreciated. The incision was again copiously irrigated with normal saline. Hemostasis was obtained with Bovie cautery. After copious irrigation and observation of hemostasis, decision was made to pack the incision and allowed to heal with secondary intent. The wound was measured prior to placing wound VAC foam. The wound measured 16 cm wide by 4 cm tall by 5.5 cm deep. The wound was packed with sterile foam. Wound was covered and VAC was placed. Good sealing appropriate suction confirmed intraoperatively. Wound care team was notified and will help facilitate postoperative wound care. The patient tolerated the procedure well. Sponge, lap, and needle counts were correct. The patient received Vancomycin pre-operatively and had SCD's on throughout the case for VTE prophylaxis. The patient was taken to the recovery room in stable condition. Estimated Blood Loss 15 Drains No Packing Yes ([id number] wound packed with foam) Pathology None sent Complications No immediate complications Condition Stable Disposition Floor [facility] Billing Surgery - Charge Forward: Surgery Billing
[2024-01-04] MEDS: ONDANSETRON INJ 4 MG/2 ML VIAL IV PUSH (17:49)
[2024-01-04] MEDS: KETOROLAC 15 MG/ML VIAL (*BKC) IV PUSH ×2 (17:49→23:17)
[2024-01-04] MEDS: DOCUSATE SODIUM 100 MG CAPSULE PO (17:49)
[2024-01-04] MEDS: SIMETHICONE 80 MG TAB.CHEW PO (17:49)
[2024-01-04] MEDS: POLYSACCHARIDE IRON COMPLEX 150 MG CAPSULE PO (17:50)
[2024-01-04] MEDS: ACETAMINOPHEN 325 MG TABLET 650 MG PO ×2 (17:50→23:18)
[2024-01-04] MEDS: ZOLPIDEM TARTRATE (*CRX) 5 MG TABLET PO (20:07)
[2024-01-05] MEDS: KETOROLAC 15 MG/ML VIAL (*BKC) IV PUSH ×2 (05:29→11:54)
[2024-01-05] MEDS: ACETAMINOPHEN 325 MG TABLET 650 MG PO ×2 (05:29→11:54)
[2024-01-05 06:00] VITALS: BP 140/87; PULSE 60; RESP 16; TEMP 36.4; O2SAT 98
[2024-01-05 07:25] LABS: Basophils Percent Auto 0.4 % (0.2-1.2); Eosinophils Absolute Auto 0.1 K/mm3 (0-0.3); Eosinophils Percent Auto 1.1 % (0-4.4); Hematocrit 30.6 % (37.0-47.0); Hemoglobin 9.4 g/dL (12.0-15.0); Immature Granulocyte Absolute 0.12 K/mm3 (0.00-0.031); Immature Granulocyte Percent A 1.2 % (0-0.5); Lymphocytes Absolute Auto 1.55 K/mm3 (0.9-3.2); Lymphocytes Percent Auto 15.1 % (18.3-44.2); Mean Corpuscular HGB Conc 30.7 g/dl (32-36); Mean Corpuscular Hemoglobin 28.9 pg (26-34); Mean Corpuscular Volume 94.2 fl (80-100); Mean Platelet Volume 9.8 fl (7.4-10.4); Monocytes Absolute Auto 0.9 K/mm3 (0.1-0.6); Monocytes Percent Auto 8.6 % (2.6-8.5); Neutrophils Absolute Auto 7.6 K/mm3 (1.3-6.7); Neutrophils Percent Auto 73.6 % (45.5-73.1); Platelet Count Result 437 k/mm3 (150-375); Red Blood Count 3.25 M/mm3 (4.2-5.4); Red Cell Distribution Width 14.6 % (11.5-14.5); White Blood Count 10.3 K/mm3 (4.5-10.0)
[2024-01-05 07:30] LABS: Estimated CRCL calculation 128 ml/min; Estimated Glomerular Filt Rate > 60
[2024-01-05 07:42] LABS: Vancomycin Trough 9.2 ug/mL (10.0-20.0)
--- NOTE | 2024-01-05 08:07 | PM.GYNPNOP ---
CAPACITY MANAGER - A/P Assessment and plan (1) Infection of obstetric surgical wound, other surgical site: Code(s): O86.09 - Infection of obstetric surgical wound, other surgical site Status: Acute Assessment and Plan: 33 yo female with post op SSI POD#1 from surgical site debridement and repair of fascial dehiscence afebrile, VSS Leukocytosis trending downward, 10.3 this AM Wound VAC in place, minimal output wound care consulted, appreciate recommendations. will plan to coordinate home wound care continue Vancomycin 15 mg/kg BID will transition to PO antibiotics prior to discharge Postoperative Procedures: Procedures Operation Date: 01/04/24 13:30 Actual Procedure Side Surgeon p Abdominal Wound Debridement with Culture and Placement of Wound Vac Elías Colbert MD Time Spent With Patient Time: Total time spent is greater than 50% in coordination of care (as documented) at patient's floor/unit and/or counseling patient: Time with patient: less than 15 minutes CAPACITY MANAGER- PN:Subj Post-Op Subjective Date/time seen: 01/05/24 08:07 Interval history: 33-year-old female who presented 1 week postop from repeat with surgical site infection. Patient is postop day 1 for and debridement and repair of fascial dehiscence. Surgical site was left open and packed to allow to heal by secondary intent. Wound VAC was placed. Patient is doing well this morning. Patient's pain is controlled with p.o. medications. Patient has not yet ambulated. She is tolerating p.o.. Minimal output in her drain overnight. Subjective: patient has no complaints and patient desires discharge Review of Systems Review of Systems: All systems reviewed & are unremarkable except as noted in HPI and below Exam Const: General: cooperative, comfortable, no acute distress and obese Nutritional Appearance: obese Resp: Effort & Inspection: normal respiratory effort and able to speak in complete sentences Cardio: Rate: regular rate GI: Inspection: incision, Pannus present and obesity Other: Pfannenstiel open and packed with surgical foam. Minimal erythema surrounding wound VAC. wound VAC has good seal and working appropriately. CAPACITY MANAGER - PN: Obj Data Vital Signs Vital Signs: Vital Signs - 24 hr 01/04/24 12:14 01/04/24 14:22 01/04/24 14:30 Temperature 97.6 F 97.5 F L Pulse Rate 72 94 72 Respiratory Rate 16 20 20 Blood Pressure 117/65 156/91 H 151/75 H Pulse Oximetry 99 100 100 Oxygen Delivery Room Air Simple Face Mask Simple Face Mask Oxygen Flow Rate 8 8 01/04/24 14:45 01/04/24 15:00 01/04/24 15:15 Temperature Pulse Rate 72 70 68 Respiratory Rate 20 19 12 Blood Pressure 134/80 144/81 H 142/82 H Pulse Oximetry 97 99 95 Oxygen Delivery Room Air Room Air Room Air Oxygen Flow Rate 01/04/24 15:27 01/04/24 16:02 01/04/24 20:15 Temperature 98.2 F 97.6 F Pulse Rate 68 65 64 Respiratory Rate 12 16 16 Blood Pressure 138/80 135/77 118/62 Pulse Oximetry 95 93 97 Oxygen Delivery Room Air Oxygen Flow Rate 01/04/24 20:00 01/05/24 06:00 Temperature 97.6 F Pulse Rate 60 Respiratory Rate 16 Blood Pressure 140/87 Pulse Oximetry 98 Oxygen Delivery Room Air Oxygen Flow Rate Intake/Output Intake/Output: Intake & Output 01/02/24 01/03/24 01/04/24 01/05/24 23:59 23:59 23:59 23:59 Intake Total 3020 200 Output Total 300 Balance 2720 200 Meds/Results Medications: Active Medications Generic Name Dose Route Start Last Admin Trade Name Smooth PRN Reason Stop Dose Admin Acetaminophen 650 mg 01/04/24 17:15 01/05/24 05:29 Acetaminophen 325 Mg Tablet PO 650 mg Q6H MAURA Administration Hydrocodone Bitart/Acetaminophen 1 tab 01/04/24 15:48 Hydrocodone/Acetaminophen (*Crx) 10-325 Mg Tablet PO Q3H PRN Breakthrough Pain Rated 7-10 Hydrocodone Bitart/Acetaminophen 1 tab 01/04/24 15:48 01/04/24 20:06 Hydrocodone/Acetaminophen (*Crx) 5-325 Mg Tablet PO
[2024-01-05] MEDS: POLYSACCHARIDE IRON COMPLEX 150 MG CAPSULE PO (08:56)
[2024-01-05] MEDS: PANTOPRAZOLE 40 MG TABLET PO (08:57)
[2024-01-05] MEDS: SIMETHICONE 80 MG TAB.CHEW PO ×2 (08:57→11:54)
[2024-01-05] MEDS: DOCUSATE SODIUM 100 MG CAPSULE PO (08:57)
[2024-01-05] MEDS: NIFEdipine 30 MG TAB.ER.24 90 MG PO (08:57)
[2024-01-05] MEDS: VANCOMYCIN 1,750 MG/NS 500 ML 1,750 MG/500 ML BAG 250 MG IVPB (08:58)
[2024-01-05] MEDS: HYDROcodone/acetaminophen (*CRX) 10-325 MG TABLET 1 TAB PO (08:58)
--- NOTE | 2024-01-05 08:59 | P.PNAN_ITS ---
Anes - Prog Note Post-Op Date/Time: 01/05/24 08:59 Cardiovascular status: normal Respiratory status: normal Airway patency: baseline Mental status: baseline Post-Op hydration status: normal Vital Signs: Last Vital Signs Temp 36.4 C 01/05/24 06:00 Pulse 60 01/05/24 06:00 Resp 16 01/05/24 06:00 BP 140/87 01/05/24 06:00 Pulse Ox 98 01/05/24 06:00 O2 Del Method Room Air 01/04/24 20:00 O2 Flow Rate 8 01/04/24 14:30 Pain Score (VAS): 0 I/O: Intake & Output 01/04/24 01/05/24 01/05/24 23:59 07:59 15:59 Intake Total 1020 200 Output Total 300 Balance 720 200 Laboratory Tests 01/05/24 06:56 01/05/24 06:56 01/05/24 06:56 WBC 10.3 H RBC 3.25 L Hgb 9.4 L Hct 30.6 L MCV 94.2 MCH 28.9 MCHC 30.7 L RDW 14.6 H Plt Count 437 H MPV 9.8 Immature Gran % (Auto) 1.2 H Neut % (Auto) 73.6 H Lymph % (Auto) 15.1 L [place] % (Auto) 8.6 H Eos % (Auto) 1.1 Baso % (Auto) 0.4 Lymph # (Auto) 1.55 [place] # (Auto) 0.9 H Eos # (Auto) 0.1 Baso # (Auto) 0.0 Abs Immat Gran (auto) 0.12 H Absolute Neuts (auto) 7.6 H Absolute Nucleated RBC 0.0 Nucleated RBC % 0.0 Creatinine 0.70 Estim Creat Clear Calc 128 Estimated GFR > 60 Vancomycin Trough 9.2 L Post-procedural complaints: none Patient Feedback: Patient satisfied with anesthetic care.
--- NOTE | 2024-01-05 13:13 | PM.DS ---
DS: Admitting Diagnosis Discharge Date 01/05/24 Admitting Diagnosis surgical site infection DS: Discharge Diagnosis Discharge Diagnosis (1) Infection of obstetric surgical wound, other surgical site: Code(s): O86.09 - Infection of obstetric surgical wound, other surgical site Status: Acute DS: Summary Hospital Course Reason for hospitalization: surgical site infection Hospital Course: 33-year-old female who presented 1 week postop after repeat with surgical site infection. Patient underwent wound exploration and debridement and repair of fascial dehiscence. Wound was left open and allowed to repair by secondary intent. A wound VAC was placed. Patient received vancomycin throughout her hospital course. Patient's leukocytosis trended downward. Pain was controlled with p.o. medications. Outpatient care was coordinated with the wound clinic team. Patient approved for home health wound changes. Patient to continue p.o. antibiotics. Status at Discharge Functional status at discharge: independent ambulation Overall status at discharge: patient is progressing back to baseline Time Spent with Patient Time attestation: Total time spent providing and/or coordinating discharge services: Time spent: Less than 30 minutes Exam Const: General: cooperative, comfortable, no acute distress and obese Nutritional Appearance: obese Resp: Effort & Inspection: normal respiratory effort and able to speak in complete sentences Cardio: Rate: regular rate GI: Inspection: incision, Pannus present and obesity Other: Pfannenstiel open and packed with surgical foam. Minimal erythema surrounding wound VAC. wound VAC has good seal and working appropriately. DS: Data Data Completed and Pending Labs on day of discharge: Labs from last 24 hours 01/05/24 06:56 WBC 10.3 H RBC 3.25 L Hgb 9.4 L Hct 30.6 L MCV 94.2 MCH 28.9 MCHC 30.7 L RDW 14.6 H Plt Count 437 H MPV 9.8 Immature Gran % (Auto) 1.2 H Neut % (Auto) 73.6 H Lymph % (Auto) 15.1 L [place] % (Auto) 8.6 H Eos % (Auto) 1.1 Baso % (Auto) 0.4 Lymph # (Auto) 1.55 [place] # (Auto) 0.9 H Eos # (Auto) 0.1 Baso # (Auto) 0.0 Abs Immat Gran (auto) 0.12 H Absolute Neuts (auto) 7.6 H Absolute Nucleated RBC 0.0 Nucleated RBC % 0.0 Creatinine 0.70 Estim Creat Clear Calc 128 Estimated GFR > 60 Vancomycin Trough 9.2 L Preliminary micro results at discharge 01/04/24 13:49 Anaerobic Culture - Preliminary Abscess Discharge Plan Discharge Discharging Clinician: Elías Colbert Patient Disposition: Home, Self-Care Activity: as tolerated, follow weight bearing status and pelvic rest Diet: regular Wound Care Instructions: other - see discharge instructions Discharge Instructions: Per Care Coordination. Patient to have [facility] for double back operator vac changes [phone]. They will contact patient to schedule visits. Patient Instructions: Antibiotic Form, How to Stop Smoking (DC) Stand Alone Forms: General Discharge Information Follow-up/Referrals: Elías Colbert MD [Physician] - Discharge Medications: New oxycodone-acetaminophen 5-325 mg tablet 1 tablet PO Q6H PRN (Reason: pain) Qty: 28 0RF clindamycin HCl [Cleocin HCl] 300 mg capsule 300 mg PO Q6H 14 Days Qty: 56 0RF doxycycline hyclate 100 mg capsule 100 mg PO BID 14 Days Qty: 28 0RF Continued nifedipine 30 mg tablet extended release 90 mg PO DAILY loratadine [Allergy Relief (loratadine)] 10 mg tablet 10 mg PO DAILY nystatin 100,000 unit/gram powder 1 applic topical BID PRN (Reason: Rash) Rx Instructions: Apply to affected area omeprazole 20 mg capsule,delayed release(DR/EC) 20 mg PO DAILY oxycodone-acetaminophen 5-325 mg tablet 1 tablet PO Q6H PRN (Reason: Pain (Scale Score 7-10)) ibuprofen 600 mg tablet 600 mg PO Q6H PRN (Reason: Pain (Scale Score 1-3)) Date of admi
--- NOTE | 2024-01-05 14:21 | PCWOUND ---
WOCN NOTE Switched patient to home wound vac and educated on operation of machine. outpatient follow up instructions entered on the discharge sheet.
== END 2024-01-05 14:45 | disposition home health service (06) | DRG 548 ==
PROVIDERS: Admitting Provider Student in an Organized Health Care Education/Training Program; PCP Family Medicine; Visit Provider Student in an Organized Health Care Education/Training Program
PROC: 0JQC0ZZ Repair Pelvic Region Subcutaneous Tissue and Fascia, Open Approach (ICD-10-PCS; CPT 59514; principal; 2024-01-04 13:30)
DX: O86.02 Infection of obstetric surgical wound, deep incisional site (principal); L02.215 Cutaneous abscess of perineum; O10.93 Unspecified pre-existing hypertension complicating the puerperium; Z90.49 Acquired absence of other specified parts of digestive tract; E66.9 Obesity, unspecified; Z68.41 Body mass index [BMI] 40.0-44.9, adult
CPT/HCPCS: 36415; 80048; 80202; 82565; 85025; 87070; 87075; 87076; 87185; 87205; A9270; G0379; J1100; J1170; J1885; J2250; J2405; J2704; J3010; J3370; J7120

== ENCOUNTER 2024-02-01 07:16 | Outpatient (RCR) | payer OTHER, SELFPAY ==
[2024-01-11 12:59] VITALS: BMI 44.0
--- NOTE | 2024-01-11 14:05 | PM.GYNPNOP ---
BARRELHEAD INSPECTOR - A/P Assessment and plan (1) Infection of obstetric surgical wound, other surgical site: Code(s): O86.09 - Infection of obstetric surgical wound, other surgical site Status: Acute Assessment and Plan: 33-year-old female 2 weeks postop from repeat with a surgical site infection Patient seen and evaluated in the Wound and ostomy clinic Patient receiving home health nurse visits for dressing changes Dressing change technique to be addressed with home health care nurses to avoid fluid collections Incision healing appropriately, which 0 ready of wound displays healthy granulation tissue, fascia remains intact Wound cultures grew anaerobic bacteria Will continue 2 weeks of p.o. doxycycline and clindamycin Encouraged tobacco cessation for wound healing will continue to assess wound on a weekly basis in the wound clinic will extend patient's work leave given delayed healing Time Spent With Patient Time: Total time spent is greater than 50% in coordination of care (as documented) at patient's floor/unit and/or counseling patient: Time with patient: less than 15 minutes BARRELHEAD INSPECTOR- PN:Subj Post-Op Subjective Date/time seen: 01/11/24 14:05 Interval history: 33-year-old female 2 weeks status post repeat complicated by surgical site infection. Patient was evaluated in the wound and ostomy Center. Patient has been receiving home health nursing visits for dressing changes. Patient states her pain is controlled at home with ibuprofen. Patient states she only takes hydrocodone during dressing changes. Patient has been compliant with p.o. antibiotics at home. Patient continues daily tobacco use. Review of Systems Review of Systems: All systems reviewed & are unremarkable except as noted in HPI and below Exam Const: General: cooperative, comfortable, no acute distress and obese HENMT: Teeth and gingiva: poor dentition Resp: Effort & Inspection: normal respiratory effort and able to speak in complete sentences Cardio: Rate: regular rate GI: Inspection: incision, obesity and striae GI Palp: Yes Soft to palpation Other: Pfannenstiel was opened for dressing change today. Small pocket of fluid collection was discovered in the right apex of the wound, fascia remains intact, majority of subcutaneous later displaying healthy granulation tissue, mild erythema noted on the skin suspect superficial yeast versus contact dermatitis from adhesive tape Psych: Appearance: grossly normal Mental Status: mental status grossly normal Speech and movement: Normal speech and movement present BARRELHEAD INSPECTOR - PN: Obj Data Meds/Results Medications: Active Medications Generic Name Dose Route Start Last Admin Trade Name Freq PRN Reason Stop Dose Admin Tolnaftate 1 applic 01/11/24 13:17 Tolnaftate 1% Powder 45 Gm Btl TOPICAL 04/12/24 23:59 PRN PRN Wound Care
--- NOTE | 2024-01-18 16:54 | P.PNOB_ITS ---
STATION USHER - A/P Assessment and plan (1) Infection of obstetric surgical wound, other surgical site: Code(s): O86.09 - Infection of obstetric surgical wound, other surgical site Status: Acute Assessment and Plan: 33-year-old female 3 weeks postop from repeat with a surgical site infection Patient seen and evaluated in the Wound and ostomy clinic Patient receiving home health nurse visits for dressing changes no concerns for fluid collection on today's dressing change Incision healing appropriately, majority of wound displays healthy granulation tissue, fascia remains intact small area of necrotic adipose tissue treated with metronidazole in the wound Will continue 1 more weeks of p.o. doxycycline and clindamycin Encouraged tobacco cessation for wound healing will continue to assess wound on a weekly basis in the wound clinic Time Spent With Patient Time: Total time spent is greater than 50% in coordination of care (as documented) at patient's floor/unit and/or counseling patient: Time with patient: less than 15 minutes STATION USHER- PN:Subj Post-Op Subjective Date/time seen: 01/18/24 16:54 Interval history: 33-year-old female 3 weeks status post repeat complicated by surgical site infection and fascial dehiscence. Patient was evaluated in the wound and ostomy Center. Patient has been receiving home health nursing visits for dressing changes. Patient states her pain is controlled at home with ibuprofen. Patient has been compliant with p.o. antibiotics at home. Patient continues daily tobacco use. Review of Systems Review of Systems: All systems reviewed & are unremarkable except as noted in HPI and below Exam Const: General: cooperative, comfortable, no acute distress and obese HENMT: Teeth and gingiva: poor dentition Resp: Effort & Inspection: normal respiratory effort and able to speak in complete sentences Cardio: Rate: regular rate GI: Inspection: incision, obesity and striae GI Palp: Yes Soft to palpation Other: Pfannenstiel was opened for dressing change today. fascia remains intact. No fluid collections noted today. small area of necrotic adipose tissue noted. The remainder of the wound displays healthy granulation tissue. metronidazole was sprinkled over the necrotic area of adipose tissues and for yeast control. Erythema on skin surrounding incision has improved. Psych: Appearance: grossly normal Mental Status: mental status grossly no rmal Speech and movement: Normal speech and movement present STATION USHER - PN: Obj Data Meds/Results Medications: Active Medications Generic Name Dose Route Start Last Admin Trade Name Freq PRN Reason Stop Dose Admin Metronidazole 250 mg 01/18/24 12:03 Metronidazole 250 Mg Tablet PO 04/19/24 23:59 PRN PRN Wound Care Tolnaftate 1 applic 01/11/24 13:17 Tolnaftate 1% Powder 45 Gm Btl TOPICAL 04/12/24 23:59 PRN PRN Wound Care
--- NOTE | 2024-01-25 12:48 | PM.GYNPNOP ---
ANALYTICAL TECHNICIAN - A/P Assessment and plan (1) Infection of obstetric surgical wound, other surgical site: Code(s): O86.09 - Infection of obstetric surgical wound, other surgical site Status: Acute Assessment and Plan: 33-year-old female 4 weeks postop from repeat with a surgical site infection Patient seen and evaluated in the Wound and ostomy clinic Patient receiving home health nurse visits for dressing changes no concerns for fluid collection on today's dressing change Incision healing appropriately, majority of wound displays healthy granulation tissue, fascia remains intact Status post 2 weeks p.o. antibiotics Patient's skin surrounding the incision noted to be erythematous. Per Wound Care team's recommendations, will take a wound VAC break. Patient will continue home dressing changes without wound VAC Encouraged tobacco cessation for wound healing will continue to assess wound on a weekly basis in the wound clinic Time Spent With Patient Time: Total time spent is greater than 50% in coordination of care (as documented) at patient's floor/unit and/or counseling patient: Time with patient: less than 15 minutes ANALYTICAL TECHNICIAN- PN:Subj Post-Op Subjective Date/time seen: 01/25/24 12:48 Interval history: 33-year-old female 4 weeks status post repeat complicated by surgical site infection and fascial dehiscence. Patient was evaluated in the wound and ostomy Center. Patient has been receiving home health nursing visits for dressing changes. Patient states her pain is controlled at home with ibuprofen. she is requesting a refill on ibuprofen. Patient has Completed a course of p.o. antibiotics at home. Patient continues daily tobacco use. Review of Systems Review of Systems: All systems reviewed & are unremarkable except as noted in HPI and below Exam Const: General: cooperative, comfortable, no acute distress and obese HENMT: Teeth and gingiva: poor dentition Resp: Effort & Inspection: normal respiratory effort and able to speak in complete sentences Cardio: Rate: regular rate GI: Inspection: incision, obesity and striae GI Palp: Yes Soft to palpation Other: Pfannenstiel was opened for dressing change today. fascia remains intact. No fluid collections noted today. small area of necrotic adipose tissue previously seen has resolved with metronidazole powder. The remainder of the wound displays healthy granulation tissue. patient's skin irritated and erythematous. Psych: Appearance: grossly normal Mental Status: mental status grossly normal Speech and movement: Normal speech and movement present ANALYTICAL TECHNICIAN - PN: Obj Data Meds/Results Medications: Active Medications Generic Name Dose Route Start Last Admin Trade Name Freq PRN Reason Stop Dose Admin Metronidazole 250 mg 01/18/24 12:03 Metronidazole 250 Mg Tablet PO 04/19/24 23:59 PRN PRN Wound Care Tolnaftate 1 applic 01/11/24 13:17 Tolnaftate 1% Powder 45 Gm Btl TOPICAL 04/12/24 23:59 PRN PRN Wound Care [facility]g [facility] Follow-up Hospital Follow-up: [id number] Post-op Follow Up
--- NOTE | 2024-02-01 14:37 | PM.GYNPNOP ---
ARTILLERY METEOROLOGICAL MAN - A/P Assessment and plan (1) Infection of obstetric surgical wound, other surgical site: Code(s): O86.09 - Infection of obstetric surgical wound, other surgical site Status: Acute Assessment and Plan: 33-year-old female 5 weeks postop from repeat with a surgical site infection Patient seen and evaluated in the Wound and ostomy clinic Patient receiving home health nurse visits for dressing changes no concerns for fluid collection on today's dressing change Wound healing well. incision dimensions continue to improve 100% healthy tissue visualized Status post 2 weeks p.o. antibiotics Will continue will home health care wound changed d/c wound vac pt discharged from weekly wound clinic visits pt to follow up outpatient in 2 weeks Time Spent With Patient Time: Total time spent is greater than 50% in coordination of care (as documented) at patient's floor/unit and/or counseling patient: Time with patient: less than 15 minutes ARTILLERY METEOROLOGICAL MAN- PN:Subj Post-Op Subjective Date/time seen: 02/01/24 14:37 Interval history: 33-year-old female 5 weeks status post repeat complicated by surgical site infection and fascial dehiscence. Patient was evaluated in the wound and ostomy Center. Patient has been receiving home health nursing visits for dressing changes. Patient states her pain is controlled at home with ibuprofen. Patient continues daily tobacco use. Subjective: patient reports feeling better and patient has no complaints Exam Const: General: cooperative, comfortable, no acute distress and obese HENMT: Teeth and gingiva: poor dentition Resp: Effort & Inspection: normal respiratory effort and able to speak in complete sentences Cardio: Rate: regular rate GI: Inspection: incision, obesity and striae GI Palp: Yes Soft to palpation Other: incision examined today. status of wound has improved greatly. skin erythema surrounding wound has improved. will discontinue wound vag. Will continue will home care dressing changes. Psych: Appearance: grossly normal Mental Status: mental status grossly normal Speech and movement: Normal speech and movement present ARTILLERY METEOROLOGICAL MAN - PN: Obj Data Meds/Results Medications: Active Medications Generic Name Dose Route Start Last Admin Trade Name Freq PRN Reason Stop Dose Admin Tolnaftate 1 applic 01/11/24 13:17 Tolnaftate 1% Powder 45 Gm Btl TOPICAL 04/12/24 23:59 PRN PRN Wound Care Amg [facility]up [facility]illing [facility] Follow-up Hospital Follow-up: [id number] Post-op Follow Up
== END 2024-03-28 12:06 | disposition home or self-care (01) ==
LOC: ANHWOC 07:16
PROVIDERS: PCP Family Medicine; Visit Provider Student in an Organized Health Care Education/Training Program
DX: O86.09 Infection of obstetric surgical wound, other surgical site (principal)
CPT/HCPCS: 97605; 97606; 99213; A9270; G0463

== ENCOUNTER 2024-05-23 07:15 | Outpatient (CLI) | payer OTHER, SELFPAY ==
--- NOTE | ~2024-05-23 | CT_ITS ---
CT abdomen pelvis wo con Ordering provider: Elías Colbert MD History: 33 years Female with . R10.9 - Unspecified abdominal pain . Comparison: None. Technique: CT abdomen and pelvis without IV and without oral contrast. Automated exposure control and iterative reconstruction technique were employed. The dose-length product was 1554.43 mGy-cm. Findings: VISUALIZED LOWER CHEST: Normal. UPPER ABDOMINAL ORGANS: Liver: Hepatomegaly. Gallbladder: Status post cholecystectomy. The Spleen: Small hypodensity in the upper portion of the spleen measuring 1.7 cm. May be a cyst or focal infarct. Follow-up advised. Stomach/duodenum: Normal. Pancreas: Normal. Adrenals: Normal. Kidneys: Normal. PELVIC ORGANS: The bladder is underfilled. Uterus: Normal. BOWEL AND MESENTERY: Colon: No evidence of diverticulitis. Normal appendix. Small Bowel: Normal. No obstruction. Peritoneum/mesentery: No free air or free fluid. No mesenteric lymphadenopathy. RETROPERITONEUM: normal aorta No retroperitoneal lymphadenopathy. MUSCULOSKELETAL: Superficial soft tissues: The superficial soft tissues are normal. Bones: Age appropriate degenerative changes of the spine. IMPRESSION: 1. No acute abdominal process with no evidence of appendicitis, diverticulitis or intestinal obstruc tion. 2. Hepatomegaly. 3. Small focal area of hypodensity in the spleen. Follow-up advised. Reviewed, dictated and finalized at location A. IMPRESSION: 1. No acute abdominal process with no evidence of appendicitis, diverticulitis or intestinal obstruction. 2. Hepatomegaly. 3. Small focal area of hypodensity in the spleen. Follow-up advised.
== END 2024-05-23 07:16 | disposition home or self-care (01) ==
LOC: ANHIMG 07:16
PROVIDERS: PCP Family Medicine; Visit Provider Student in an Organized Health Care Education/Training Program
DX: R10.9 Unspecified abdominal pain (principal); R16.0 Hepatomegaly, not elsewhere classified
CPT/HCPCS: 74176

== ENCOUNTER 2024-06-20 09:57 | Outpatient (CLI) | payer OTHER, SELFPAY ==
[2024-06-20 11:13] LABS: Basophils Percent Auto 0.4 % (0.2-1.2); Eosinophils Absolute Auto 0.1 K/mm3 (0-0.3); Hematocrit 39.5 % (37.0-47.0); Hemoglobin 12.1 g/dL (12.0-15.0); Immature Granulocyte Absolute 0.04 K/mm3 (0.00-0.031); Immature Granulocyte Percent A 0.5 % (0-0.5); Lymphocytes Absolute Auto 1.75 K/mm3 (0.9-3.2); Lymphocytes Percent Auto 21.7 % (18.3-44.2); Mean Corpuscular HGB Conc 30.6 g/dl (32-36); Mean Corpuscular Hemoglobin 26.9 pg (26-34); Mean Platelet Volume 9.8 fl (7.4-10.4); Monocytes Absolute Auto 0.7 K/mm3 (0.1-0.6); Monocytes Percent Auto 9.2 % (2.6-8.5); Neutrophils Absolute Auto 5.4 K/mm3 (1.3-6.7); Neutrophils Percent Auto 67.2 % (45.5-73.1); Platelet Count Result 312 k/mm3 (150-375); Red Blood Count 4.49 M/mm3 (4.2-5.4); Red Cell Distribution Width 16.5 % (11.5-14.5); White Blood Count 8.1 K/mm3 (4.5-10.0)
== END 2024-06-20 09:58 | disposition home or self-care (01) ==
PROVIDERS: PCP Family Medicine
DX: R16.0 Hepatomegaly, not elsewhere classified (principal); R93.89 Abnormal findings on diagnostic imaging of other specified body structures
CPT/HCPCS: 36415; 85025

== ENCOUNTER 2024-06-26 09:53 | Outpatient (CLI) | payer OTHER, SELFPAY ==
--- NOTE | ~2024-06-26 | MR_ITS ---
EXAMINATION: MR abdomen wo/w con DATE: 06/26/2024 11:14 INDICATION: Splenic mass. Abdominal pain. TECHNIQUE: Magnetic resonance imaging (MRI) of the abdomen was performed without and with 20 mL Multi Donita intravenous contrast. COMPARISON: CT abdomen and pelvis 05/23/2024 FINDINGS: There is diffuse hepatic steatosis. The gallbladder is absent. There is a 17 mm cyst in the spleen. T he pancreas, adrenal glands, and kidneys are normal. There are no dilated loops of bowel. There are n o pathologically enlarged lymph nodes. There is no free intraperitoneal fluid. IMPRESSION: 1. 17 mm benign cyst in the spleen. 2. Diffuse hepatic steatosis. Reviewed, dictated and finalized at location A.
== END 2024-06-26 09:54 | disposition home or self-care (01) ==
LOC: ANHIMG 09:54
PROVIDERS: PCP Family Medicine
DX: R93.89 Abnormal findings on diagnostic imaging of other specified body structures (principal); D73.4 Cyst of spleen; K76.0 Fatty (change of) liver, not elsewhere classified
CPT/HCPCS: 74183; A9577

== ENCOUNTER 2024-11-08 10:28 | Outpatient (CLI) | payer OTHER, SELFPAY ==
--- NOTE | 2024-11-08 10:49 | ECG_ITS ---
Test Date: 2024-11-08 11:16:45 Measurements Intervals [place] Rate: 76 P: 14 [place]: 187 QRS: 13 QRSD: 85 T: 43 QT: 375 QTc: 422 Interpretive Statements SINUS RHYTHM POSSIBLE RIGHT VENTRICULAR CONDUCTION DELAY [RSR (QR) IN V1/V2] No previous ECG available for comparison Electronically Signed On 11-09-2024 16:34:41 [employer] by Ranulfo Sauer M.D.
[2024-11-08 11:42] LABS: Hematocrit 41.8 % (37.0-47.0); Hemoglobin 13.2 g/dL (12.0-15.0); Mean Corpuscular HGB Conc 31.6 g/dl (32-36); Mean Corpuscular Hemoglobin 28.1 pg (26-34); Mean Corpuscular Volume 89.1 fl (80-100); Mean Platelet Volume 9.9 fl (7.4-10.4); Platelet Count Result 343 k/mm3 (150-375); Red Blood Count 4.69 M/mm3 (4.2-5.4); Red Cell Distribution Width 14.6 % (11.5-14.5); White Blood Count 8.4 K/mm3 (4.5-10.0)
== END 2024-11-08 10:29 | disposition home or self-care (01) ==
PROVIDERS: PCP Family Medicine; Referring Provider Anesthesiology; Visit Provider Student in an Organized Health Care Education/Training Program
DX: Z01.818 Encounter for other preprocedural examination (principal); I10 Essential (primary) hypertension
CPT/HCPCS: 36415; 85027; 93005